=== PATIENT | female | born 1970 | race Caucasian/White ===

== ENCOUNTER 2018-02-11 09:57 | Day surgery (SDC) | payer BC, OTHER ==
--- NOTE | 2018-02-05 10:01 | HP ---
Admitting History and Physical - Primary Care Physician PCP: Ambrose Walton - Admission Chief Complaint: Right breast LCIS History of Present Illness: 47 year olf premenapausal female who was found to have dense breast tissue on screnning mammogram. Breast US showed couple densities right breast 10:00 8 cm FN and left breast 1:00 5 cm FN . US core bx 01/18/2018 showed Right breast @ 10:00 LCIS and left breast @ 1:00 fibroadenoma. She is here for excision of right breast LCIS. History Source: Patient Limitations to Obtaining History: No Limitations - Past Medical History Gastrointestinal: Yes: GERD Psych: Yes: Anxiety, Depression Home Medications - Allergies Allergies/Adverse Reactions: Allergies Allergy/AdvReac Type Severity Reaction Status Date / Time No Known Allergies Allergy Verified 02/05/18 10:01 - Home Medications Home Medications (free text): omeprazole,sertraline ,meloxicam Family Disease History - Family Disease History Family Disease History: CA: Grandparent (mat GF prostate ca80) Physical Examination Constitutional: Yes: Well Nourished Breast(s): Yes: Other (full ptotic C Cup with some bruising from her bilateral breast bxs upper outer quadrant no palpable masses or adenopathy.) Problem List - Problems (1) Lobular carcinoma in situ (LCIS) of right breast Code(s): D05.01 - LOBULAR CARCINOMA IN SITU OF RIGHT BREAST Assessment/Plan Right breast wide excision with mammogram needle localization
[2018-02-05 14:31] VITALS: BMI 23.9
[2018-02-11] MEDS ORDERED: LIDOCAINE HCL 1%, 10 MG/ML (20ML VIAL) ONE (13:14)
[2018-02-11] MEDS ORDERED: BUPIVACAINE HCL/PF 2.5 MG/ML - 30 ML VIAL IJ ONE (13:14)
[2018-02-11] MEDS ORDERED: ONDANSETRON 4 MG/2 ML VIAL IVPUSH PRN (13:17)
[2018-02-11] MEDS ORDERED: KETOROLAC TROMETHAMINE 30 MG/1 ML VIAL IVPUSH PRN (13:17)
[2018-02-11] MEDS ORDERED: MIDAZOLAM HCL 2 MG/2 ML SINGLE DOSE VIAL ONE (13:19)
[2018-02-11] MEDS ORDERED: DEXTROSE 5%-0.45% SALINE 1,000 ML IV SCH (13:30)
[2018-02-11] MEDS ORDERED: LIDOCAINE HCL/PF 2% SDV 5ML VIAL ONE (14:12)
[2018-02-11] MEDS ORDERED: DEXAMETHASONE SOD PHOSPHATE 4 MG/1 ML VIAL ONE (14:13)
[2018-02-11] MEDS ORDERED: PROPOFOL 20 ML ONE (14:13)
[2018-02-11] MEDS ORDERED: ONDANSETRON 4 MG/2 ML VIAL ONE (14:13)
[2018-02-11] MEDS ORDERED: GUM MASTIC/STORAX/MSAL/ALCOHOL 1 DRP DROPSBTL MC ONE (14:17)
[2018-02-11] MEDS ORDERED: BUPIVACAINE HCL/PF 0.25% (2.5MG/ML) 10 ML VIAL IJ ONE (14:18)
[2018-02-11 15:00] VITALS: TEMP 98.3
[2018-02-11] MEDS ORDERED: oxyCODONE HCL 5 MG TABLET PO PRN ×2 (15:30)
[2018-02-11] MEDS ORDERED: LACTATED RINGERS SOLUTION 1,000 ML IV SCH (15:30)
[2018-02-11 16:25] VITALS: PULSE 67
[2018-02-11 17:32] VITALS: BP 106/60
--- NOTE | 2018-02-12 09:44 | OP ---
DATE OF OPERATION: 02/11/2018 PREOPERATIVE DIAGNOSIS: Right breast atypia. 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 PROCEDURE: Right breast partial mastectomy with mammographic needle localization. ANESTHESIA: General laryngeal mask airway anesthesia. PRIMARY SURGEON: Alexis Walton MD INFORMATION SYSTEMS PROJECT MANAGER: TRINITY Aguilar COMPLICATIONS: There were no complications. INDICATIONS: Briefly, the patient is a 47-year-old premenopausal white female of [place] descent with no family history of breast or ovarian cancer. Her maternal grandfather had prostate cancer at age 80. The patient underwent a mammography in January of 2018 showing dense changes, but there was a right breast 10 o'clock 9-mm density 8 cm from the nipple, and on the left breast a 5-mm density at the 1 o'clock region. She underwent bilateral ultrasound-guided core biopsies on January 18, 2018. The left side showed a fibroadenoma, but the right showed LCIS and atypia. Slide review showed this LCIS to be possibly bordering on DCIS. Wide excision was recommended. She was brought in for the procedure on February 11, 2018. DESCRIPTION OF PROCEDURE: She first underwent a mammographic needle localization of the right breast clip and was brought to the holding area. In the holding area, site verification was made and informed consent was obtained. She was brought into the operating room and laid on the OR table in the supine position. Venodynes were placed on the lower extremities prior to induction. She did not receive antibiotics given the small nature of the excision. The right breast was sterilely prepped and draped in the usual fashion with the wire prepped in the field, and she underwent general laryngeal mask airway anesthesia. An incision was made towards the far lateral aspect of the right breast upper outer quadrant and dissection was undertaken around the needle localization. The breast tissue was completely removed from around the wire with the wire intact in the middle of the specimen. The specimen was oriented with a long-lateral short-superior suture, and specimen radiograph showed removal of the clip in question. Hemostasis was achieved. The breast parenchyma was then reapproximated using 2-0 plain suture. The skin was closed using interrupted 3-0 deep dermal Vicryl suture and a running 4-0 subcuticular Biosyn suture. Mastisol and Steri-Strips were applied over the wound with a compressive dressing placed over this. The patient tolerated the procedure well without difficulty, and laryngeal mask airway tube was removed at the end of the case. We did instill about 10 mL of 0.25% Marcaine in the wound prior to closure. The patient will be discharged home the same day once discharge criteria are met, and she is to follow up in the office in one week. All sponge and needle counts were correct at the end of the case, and estimated blood loss was minimal. ALEXIS WALTON M.D. [id number]
--- NOTE | 2018-02-16 12:39 | PATH ---
Surgical Pathology Report Patient Name: JAMARI SHELL Med. Rec. #: [id number] /Age/Gender: 1970 (Age: 47) / F Account: [id number] Location: [facility] Taken: 02/11/2018 Received: 02/11/2018 Reported: 02/16/2018 Physicians: Ambrose Walton M.D. Specimen(s) Received RIGHT BREAST WIDE EXCISION Clinical History Wide excision for atypia Final Diagnosis Breast, right, wide excision: Lobular carcinoma in situ (LCIS), classical type, involving sclerosising adenosis. (See note). Columnar cell change with associated calcificationS. Prior biopsy site changes are present. Note: E-Cadherin immunostains (performed at [facility], on blocks 2&4) demonstrate the foci of LCIS to be negative for E-Cadherin, which supports lobular phenotype. See also concurrent right breast biopsy slide review (our case # [id number], outside institution # [id number]). Electronically Signed Lissa Rao M.D. Gross Description Received in formalin, labeled "right breast wide excision," is a 4.5 x 3.2 x 2.6 cm. yadav-yellow, irregular, portion of fibroadipose tissue with a needle localization wire present. There is a short suture marking the superior aspect and a long suture marking the lateral aspect, per the surgeon. There is no skin present. The specimen is inked as follows: superior and lateral blue; inferior green; medial yellow; anterior red; deep black. The specimen is serially sectioned from superior to inferior. Sectioning reveals diffuse dense white fibrous tissue. There is a redman metallic biopsy clip identified. No definitive mass is identified. The specimen is entirely and sequentially submitted in 11 cassettes with the superior margin in cassette 1, the inferior margin in cassette 11 and the biopsy clip in cassette 2 (one bisected section each in cassettes 3/4, 5/6, 7/8). Time to formalin fixation: 10 minutes Total formalin fixation time: Approximately 28 hours. 02/12/2018 saudi02/12/2018
== END 2018-02-11 17:10 | disposition home or self-care (01) ==
LOC: FASU 09:57
PROVIDERS: ATTEND Surgery Surgical Oncology
PROC: 0HBT0ZZ Excision of Right Breast, Open Approach (ICD-10-PCS; principal; 2018-02-11 13:00)
DX: D05.01 Lobular carcinoma in situ of right breast (principal)
CPT/HCPCS: 19281; 77065-TC-50; 84703; 88307-TC; 88341-TC; 88342-TC; 94760